=== PATIENT | male | born 1960 | race African-American/Black ===

== ENCOUNTER 2025-02-22 01:08 | Emergency (ER) | payer OTHER ==
[2025-02-22] MEDS ORDERED: LIDOCAINE HCL 2% JELLY 10 ML CARTRIDGE ONE (01:16)
[2025-02-22 01:34] VITALS: PULSE 84; RESP 18; TEMP 99; BMI 27.8
[2025-02-22] MEDS: LIDOCAINE HCL 2% JELLY 10 ML CARTRIDGE UR ONE (01:58)
[2025-02-22 02:14] VITALS: BP 134/88
[2025-02-22 02:41] LABS: EPI CELLS 7 /uL (0-25.1); HYALINE CASTS 1 /uL (0-3.1); URINE APPEARANCE CLOUDY; URINE BACTERIA 2 /uL (0-1359); URINE BILIRUBIN NEGATIVE (NEGATIVE); URINE COLOR RED; URINE GLUCOSE (UA) NEGATIVE (NEGATIVE); URINE KETONE NEGATIVE (NEGATIVE); URINE LEUK ESTERASE 1+ (NEGATIVE); URINE NITRITE NEGATIVE (NEGATIVE); URINE PROTEIN 2+ (NEGATIVE); URINE RBC 11207 /uL (0-23.9); URINE UROBILINOGEN 0.2 mg/dL (0.2-1.0); URINE WBC 62 /uL (0-25.8)
== END 2025-02-22 02:19 | disposition home or self-care (01) ==
LOC: FER 01:08
PROC: 0T9B70Z Drainage of Bladder with Drainage Device, Via Natural or Artificial Opening (ICD-10-PCS; principal; 2025-02-22)
DX: R33.9 Retention of urine, unspecified (principal); N32.89 Other specified disorders of bladder
CPT/HCPCS: 81003; 87086; 99283-25